=== PATIENT | male | born 1970 | race Two or more races ===

== ENCOUNTER 2021-03-01 12:00 | Emergency (ER) | payer OTHER ==
[~2021-03-01] VITALS: Ht 177.8 cm; Wt 79.4 kg
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
[2021-03-01] MEDS ORDERED: ONDANSETRON HCL/PF 4 MG/2 ML VIAL ONE (12:22)
[2021-03-01] MEDS ORDERED: MORPHINE SULFATE INJ 4 MG/ML DISP.SYRIN ONE ×2 (12:23→13:00)
[2021-03-01] MEDS ORDERED: MORPHINE SULFATE INJ 2 MG/ML DISP.SYRIN IV ONE ×2 (12:30→13:00)
[2021-03-01] MEDS ORDERED: ONDANSETRON HCL/PF - ER 4 MG/2 ML VIAL IV ONE (12:30)
--- NOTE | 2021-03-01 12:51 | NUR ---
The patient refuses his left upper extremity to be assessed despite explaining risks and benefits.
[2021-03-01] MEDS ORDERED: PROPOFOL 20 ML IV ONE (13:48)
[2021-03-01] MEDS ORDERED: HYDR-4303 PO (14:54)
--- NOTE | 2021-03-01 16:05 | NUR ---
Patient discharged to home in stable condition. Written and verbal after care instructions given. Patient verbalizes understanding of instruction.
[2021-03-01 16:06] VITALS: BP 131/70
== END 2021-03-01 16:06 | disposition home or self-care (01) ==
LOC: ER 12:02
DX: S53.125A Posterior dislocation of left ulnohumeral joint, initial encounter (principal); V49.49XA Driver injured in collision with other motor vehicles in traffic accident, initial encounter; Y93.89 Activity, other specified; Y92.413 State road as the place of occurrence of the external cause; Y99.8 Other external cause status
CPT/HCPCS: 24600; 73070; 73080; 73090; 96374; 96375; 96376; 99152; 99285; J2270 ×2; J2405 ×2; J2704; J7040; G0500